=== PATIENT | male | born 1965 | race Two or more races ===

== ENCOUNTER → 2024-11-11 | Outpatient (CLI) | payer MEDICAID, SELFPAY ==
--- NOTE | 2024-11-11 10:30 | XR_ITS ---
Examination: CTA abdomen, with intravenous contrast. CTA pelvis, with intravenous contrast. CT abdomen without intravenous contrast CT pelvis without intravenous contrast 2-D sagittal and coronal reconstructions. 3-D reconstructions. Date and time of exam: November 11, 2024 1205 hours INDICATIONS: Abnormal liver function tests on examination 6 months ago, diagnosis cirrhosis CTDI vol (mgy) 37.2 DLP (MGycm) 1620 Technique: Multiple CTA images, 2.0 mm slice thickness, obtained abdomen, pelvis, with the high-resolution 64 slice scanner. 100 cc Isovue-370 is administered intravenously. Sagittal and coronal 2-D reconstructions are obtained. 3-D reconstructions, angiographic images are obtained. 3-D postprocessing, including vascular maximum intensity projections. Low dose protocols were performed. One or more of the following dose reduction techniques were used; automated exposure control, adjustment of the mA and/or KV according to patient size, use of iterative reconstruction technique. Findings: No focal liver or splenic lesions Liver is irregular in contour Multiple small gallstones No pancreatic or adrenal mass Mild bilateral perinephric stranding 20 mm fat-containing umbilical hernia No abdominal aortic aneurysm dilatation No pericecal inflammatory change Urinary bladder wall thickening up to 4 mm Transverse prostate dimension 4.1 cm Moderate osteopenia IMPRESSION: Cirrhosis, no focal liver lesions Cholelithiasis, recommend hepatobiliary sonography follow-up Perinephric stranding, consider urinary tract infection Moderate prostatomegaly
== END | disposition home or self-care (01) ==
LOC: CCTX 10:38
DX: K74.60 Unspecified cirrhosis of liver (principal); K80.20 Calculus of gallbladder without cholecystitis without obstruction; N28.89 Other specified disorders of kidney and ureter; N40.0 Benign prostatic hyperplasia without lower urinary tract symptoms
CPT/HCPCS: 74174; A4649; Q9967

== ENCOUNTER → 2024-11-15 | Outpatient (CLI) | payer MEDICAID, SELFPAY ==
--- NOTE | 2024-11-15 14:30 | XR_ITS ---
Examination: Ultrasound liver Elastography Exam date and time: November 15, 2024 at 1401 hours INDICATIONS: Diagnosis liver disease, cirrhosis, fatty liver TECHNIQUE AND FINDINGS: Sonographic images left with assessment of tissue stiffness average Liver 17.5 cm fatty infiltration irregular contour Incidental note gallstones Tissue stiffness average 1.6 m/s corresponding to [id number] liver fibrosis IMPRESSION: [id number] liver fibrosis
== END | disposition home or self-care (01) ==
LOC: CDIM 13:30
DX: K74.00 Hepatic fibrosis, unspecified (principal)
CPT/HCPCS: 76981